=== PATIENT | female | born 1980 | race African-American/Black ===

== ENCOUNTER 2018-02-02 17:49 | Emergency (ER) | payer OTHER ==
[~2018-02-02] VITALS: Ht 154.9 cm; Wt 70.8 kg
[2018-02-02 18:04] VITALS: BP 102/68
[2018-02-02] MEDS ORDERED: Norco 5mg/325mg tab ORAL ONE (18:30)
--- NOTE | 2018-02-02 19:08 | Emergency Room Report ---
History of Present Illness General Chief Complaint: Toothache Source: Patient Present Illness HPI 38 YO Female presents to the ED c/o 06/05 in severity localized pain, tenderness , swelling, and erythema to one of the the right upper teeth associated with a broken tooth. x 2 days. pt. reports pain has begun to cause progressive HERNANDEZ on the right side. Patient states that her tooth has been broken for quite some time and she never had pain like this previously. Patient states that she was recommended to have root canal performed which she has not gotten around to. Patient denies fevers, chills Samy sore throat, neck pain, swollen tender lymph nodes. She denies recent dental procedures. Denies dizziness, changes in vision, nausea or vomiting. Allergies: Coded Allergies: No Known Allergies (Unverified , 02/02/18) Patient History Past Medical History: see triage record Past Surgical History: none Pertinent Family History: none Last Menstrual Period: Implant to left upper arm. Reviewed Nursing Documentation: PMH: Agreed; PSxH: Agreed Nursing Documentation-PMH Past Medical History: No Stated History Review of Systems All Other Systems: negative except mentioned in HPI Physical Exam Vital Signs Date Time Temp Pulse Resp B/P (MAP) Pulse Ox O2 Delivery O2 Flow Rate FiO2 02/02/18 18:04 98.3 73 17 102/68 97 Room Air 98.3 Sp02 EP Interpretation: reviewed, normal General Appearance: alert, GCS 15, non-toxic, moderate distress Head: normocephalic, atraumatic Eyes: bilateral eye normal inspection, bilateral eye PERRL ENT: hearing grossly normal, normal voice, uvula midline, moist mucus membranes , other - Premolar tooth no. 4 is brocken near the gum line with exposure of pulp, tenderness to percussion, no palpable fluctuance about the gums, no oral lesions. Neck: full range of motion Respiratory: lungs clear, normal breath sounds, speaking full sentences Cardiovascular #1: regular rate, rhythm Musculoskeletal: back normal, gait/station normal, normal range of motion, non- tender Neurologic: alert, oriented x3, responsive, motor strength/tone normal, sensory intact, normal gait, speech normal, grossly normal Psychiatric: judgement/insight normal Skin: normal color, no rash, warm/dry, well hydrated Lymphatic: no adenopathy Medical Decision Making PA Attestation Dr. Coyle is my supervising Physician whom patient management has been discussed with. Diagnostic Impression: Primary Impression: Pain, dental Additional Impression: Nontraumatic broken or cracked tooth ER Course 38 YO Female presents to the ED c/o 06/05 in severity localized pain, tenderness , swelling, and erythema to one of the the right upper teeth associated with a broken tooth. x 2 days. pt. reports pain has begun to cause progressive HERNANDEZ on the right side. Patient states that her tooth has been broken for quite some time and she never had pain like this previously. Patient states that she was recommended to have root canal performed which she has not gotten around to. Patient denies fevers, chills Samy sore throat, neck pain, swollen tender lymph nodes. She denies recent dental procedures. Denies dizziness, changes in vision, nausea or vomiting. Ddx considered but are not limited to cellulitis, dental abscess, orbital cellulitis, d/l tooth, dental pain. trigeminal neuralgia Vital signs: are WNL, pt. is afebrile H&PE are most consistent with nontraumatic broken tooth with pulpitis. ORDERS: none required at this time, the diagnosis is clinical ED INTERVENTIONS: None required at this time. DISCHARGE: At this time pt. is stable for d/c to home. Will provide printed patient care instructions, and any necessary prescriptions. Care plan and follow up instructions have been discussed with the patient prior to discharge. Last Vital Signs Date Time Temp Pulse Resp B/P (MAP) Pulse Ox O2 Delivery O2 Flow Rate FiO2 02/02/18 18:53 98.3 02/02/18 18:04 73 17 102/68 97 Room Air Disposition: HOME, SELF-CARE Condition: Stable Scripts Hydrocodone Bit/Acetaminophen 5-325* (NORCO 5-325*) 1 Each Tablet 1 TAB ORAL Q6H PRN for For Pain, #5 TAB 0 Refills Prov: Yenifer Dorsey 02/02/18 Amoxicillin* (AMOXIL*) 500 Mg Capsule 500 MG ORAL BID for 7 Days, #14 CAP Prov: Yenifer Dorsey 02/02/18 Benzocaine (ANESTHETIC ORAL GEL) 14 Gm Gel..gram. 14 GM MM QID, #14 GM Prov: Yenifer Dorsey 02/02/18 Ibuprofen* (MOTRIN*) 600 Mg Tablet 600 MG ORAL THREE TIMES A DAY, #20 TAB 0 Refills Prov: Yenifer Dorsey 02/02/18 Patient Instructions: Dental Pain Additional Instructions: Take medications as directed. Follow up with a Dentist in 3-5 days, even if your symptoms have resolved. * * --Please review list of Dental clinics, if you do not already have a Dentist Return sooner to ED if new symptoms occur, or current symptoms become worse. - Please note that this Emergency Department Report was dictated using [employer] admin technology software, occasionally this can lead to erroneous entry secondary to interpretation by the dictation equipment. Yenifer Dorsey Feb 02, 2018 19:08
[2018-02-02] MEDS ORDERED: NORCO 5-325 TA1 EACH ORAL (19:10)
[2018-02-02] MEDS ORDERED: AMOXICILLIN500 MG ORAL (19:10)
[2018-02-02] MEDS ORDERED: ANESTHETIC ORAL14 GM MM (19:10)
[2018-02-02] MEDS ORDERED: IBUPROFEN600 MG ORAL (19:10)
[2018-02-02] MEDS ORDERED: Lidocaine 2% Visc 15ml soln ORAL ONE (19:15)
[2018-02-02 19:22] VITALS: BP 102/68
== END 2018-02-02 19:25 | disposition home or self-care (01) ==
LOC: EMR 18:20
DX: K08.89 Other specified disorders of teeth and supporting structures (principal); K03.81 Cracked tooth
CPT/HCPCS: 99284

== ENCOUNTER 2018-05-03 14:51 | Emergency (ER) | payer OTHER ==
[~2018-05-03] VITALS: Ht 157.5 cm; Wt 68.0 kg
[~2018-05-03 14:51] MED LIST: AMOXICILLIN500 MG ORAL; ANESTHETIC ORAL14 GM MM; IBUPROFEN600 MG ORAL; NORCO 5-325 TA1 EACH ORAL
[2018-05-03 15:02] VITALS: BP 112/70
--- NOTE | 2018-05-03 15:14 | Emergency Room Report ---
History of Present Illness General Chief Complaint: Female Urogenital Problems Source: Patient Present Illness HPI 38-year-old female patient presents ER complaining of pelvic discomfort for the past 4 days. reports would like to be tested for STI. Reports symptoms began after having unprotected sex with single partner. Denies vaginal discharge or foul smelling odor. denies pelvic rash or lesions. denies frequency, urgency, dysuria, hematuria. Reports takes control medication. Reports does not know partners is experiencing symptoms. Denies fever, chest pain, shortness of breath, vomiting, back pain, diarrhea. Allergies: Coded Allergies: No Known Allergies (Unverified , 05/03/18) Patient History Past Medical History: see triage record Last Menstrual Period: six days ago Now: No Reviewed Nursing Documentation: PMH: Agreed; PSxH: Agreed Nursing Documentation-PMH Past Medical History: No History, Except For Review of Systems All Other Systems: negative except mentioned in HPI Physical Exam Vital Signs Date Time Temp Pulse Resp B/P (MAP) Pulse Ox O2 Delivery O2 Flow Rate FiO2 05/03/18 14:53 98.2 96 16 112/70 96 Room Air 98.2 Sp02 EP Interpretation: reviewed, normal General Appearance: well appearing, no apparent distress, alert, GCS 15, non- toxic Head: normocephalic, atraumatic Eyes: bilateral eye normal inspection, bilateral eye PERRL ENT: hearing grossly normal, normal pharynx, no angioedema, normal voice, uvula midline, moist mucus membranes Neck: full range of motion Respiratory: lungs clear, normal breath sounds, no rhonchi, no respiratory distress, no accessory muscle use, no wheezing, speaking full sentences Cardiovascular #1: regular rate, rhythm, no edema Gastrointestinal: non tender, soft, no mass, non-distended, no guarding, no rebound Genitourinary: no CVA tenderness Musculoskeletal: back normal, digits/nails normal, gait/station normal, normal range of motion, non-tender Neurologic: alert, oriented x3, responsive, motor strength/tone normal, sensory intact Psychiatric: mood/affect normal Skin: no rash Medical Decision Making PA Attestation Dr. Villar is my supervising Physician whom patient management has been discussed with. Diagnostic Impression: Primary Impression: Encounter for screening for infections with predominantly sexual mode of transmission ER Course Pt. presents to the ED c/o STI. Ddx considered but are not limited to gonorrhea, chalmydia, cystitis, pylonephritis. no abdominal tenderness to palpation, patient ambulatory, nontoxic appearing, low suspicion for ovarian torsion., does not require imaging at this time. Vital signs: are WNL, pt. is afebrile Ordered UA and abx. ER COURSE: UA results unremarkable, no signs of infection. urine negative. Results discussed with patient. Provided patient with Rocephin and Azithromycin in the ER. Informed patient medications will cover for gonorrhea and chlamydia, needs further follow-up evaluation and possible treatment of other sexual transmitted infections. Advised to use safe sex practices including but not limited to use of condoms. Avoid sexual activity for the next weeks. Instructed patient to follow up with STI clinic and/or PCP for STI evaluation and further treatment as necessary. Instructed patient to inform partners of needs for evaluation and treatment of possible infections. Take Tylenol for pain symptoms. DISCHARGE: Patient is resting comfortably, in no acute distress, nontoxic appearing, talking without difficulty. Patient to take medications as instructed Will provide with patient care instructions and any necessary prescriptions. Care plan and follow-up instructions provided. Patient instructed to follow-up with primary care provider in 3 - 5 days. Patient questions asked and answered. Patient reports understanding and agreement to treatment plan. ER precautions given. Patient instructed to return to ER immediately for any new or worsening of symptoms including but not limited to increasing SOB, persistent fever. - Please note that this Emergency Department Report was dictated using [employer] trader technology software, occasionally this can lead to erroneous entry secondary to interpretation by the dictation equipment. Labs Test 05/03/18 15:20 Urine Color Pale yellow Urine Appearance Clear Urine pH 7 (4.5-8.0) Urine Specific [place] 1.020 (1.005-1.035) Urine Protein Negative (NEGATIVE) Urine Glucose (UA) Negative (NEGATIVE) Urine Ketones Negative (NEGATIVE) Urine Blood 2+ (NEGATIVE) Urine Nitrite Negative (NEGATIVE) Urine Bilirubin Negative (NEGATIVE) Urine Urobilinogen Normal MG/DL (0.0-1.0) Urine Leukocyte Esterase 2+ (NEGATIVE) Urine RBC 5-10 /HPF (0 - 2) Urine WBC 2-4 /HPF (0 - 2) Urine Squamous Epithelial Cells Few /LPF (NONE/OCC) Urine Amorphous Sediment Few /LPF (NONE) Urine Bacteria Few /HPF (NONE) Urine HCG, Qualitative Negative (NEGATIVE) Last Vital Signs Date Time Temp Pulse Resp B/P (MAP) Pulse Ox O2 Delivery O2 Flow Rate FiO2 05/03/18 15:02 98.2 96 16 112/70 96 Room Air 98.2 Disposition: HOME, SELF-CARE Condition: Stable Referrals: [email or web address],REFERRING (PCP) Patient Instructions: Sexually Transmitted Disease, [id number] Additional Instructions: Followup with primary care provider and followup with STI clinic for further evaluation and treatment. Alert sexual partners for need for evaluation and treatment. Wear condoms during sex. Avoid sexual activity for 2 weeks. Drink plenty of fluids. Patient questions asked and answered. ER precautions given, patient instructed to return to ER immediately for any new or worsening of symptoms. Conor Armstrong May 03, 2018 15:14
[2018-05-03] MEDS ORDERED: Lidocaine 1% MPF 10mg/ml 5ml INJ ONE (15:15)
[2018-05-03] MEDS ORDERED: Azithromycin 250mg tab ORAL ONE (15:15)
[2018-05-03 15:44] LABS: APPEARANCE,URINE CLEAR; BILIRUBIN, URINE NEGATIVE (NEGATIVE); COLOR,URINE PALE YELLOW; GLUCOSE, URINE (UA) NEGATIVE (NEGATIVE); KETONES,URINE NEGATIVE (NEGATIVE); LEUKOCYTE ESTERASE ,URINE 2+ (NEGATIVE); NITRITE,URINE NEGATIVE (NEGATIVE); PH,URINE 7 (4.5-8.0); PROTEIN,URINE NEGATIVE (NEGATIVE); UROBILINOGEN,URINE NORMAL MG/DL (0.0-1.0)
[2018-05-03 16:18] VITALS: BP 112/70
== END 2018-05-03 16:18 | disposition home or self-care (01) ==
LOC: EMR 15:07
DX: Z11.3 Encounter for screening for infections with a predominantly sexual mode of transmission (principal); R10.2 Pelvic and perineal pain
CPT/HCPCS: 81003; 81025; 96372; 99283; J0696; Q0144

== ENCOUNTER 2019-02-05 19:12 | Emergency (ER) | payer OTHER ==
[~2019-02-05] VITALS: Ht 154.9 cm; Wt 72.6 kg
[2019-02-05 19:45] VITALS: BP 102/66
--- NOTE | 2019-02-05 20:21 | Emergency Room Report ---
History of Present Illness General Chief Complaint: Pain Present Illness HPI 39-year-old female with no significant past medical history here complaining of pain in right-sided space and she reports that she has an infected tooth pending follow-up with dentist. Patient is rating her pain 10 out of 10 with radiation to the left periorbital and left forehead denies pus drainage from her mouth. Denies tingling and numbness. Patient has been taking ibuprofen for pain. Denies sore throat, congestion, and all other URI symptoms. Denies chest pain, palpitation, shortness of breath, nausea vomiting. Patient reports that she cannot take Augmentin as it makes her dizzy. Allergies: Uncoded Allergies: BIRD (Allergy, Unknown, 02/05/19) CAT (Allergy, Unknown, 02/05/19) DOG (Allergy, Unknown, 02/05/19) Patient History Past Medical History: see triage record Past Surgical History: unable to obtain Last Menstrual Period: Jan 24 2019 Now: No Immunizations: UTD Reviewed Nursing Documentation: PMH: Agreed; PSxH: Agreed Review of Systems All Other Systems: negative except mentioned in HPI Physical Exam Vital Signs Date Time Temp Pulse Resp B/P (MAP) Pulse Ox O2 Delivery O2 Flow Rate FiO2 02/05/19 19:37 98.2 68 18 102/66 (78) 98 Room Air Sp02 EP Interpretation: reviewed, normal General Appearance: normal inspection, well appearing, no apparent distress, alert Head: normocephalic, atraumatic Eyes: bilateral eye normal inspection, bilateral eye PERRL ENT: normal pharynx, TMs + canals normal, uvula midline, other - swelling left maxilla, infx right lower molar Neck: normal inspection, full range of motion, supple Respiratory: normal inspection, chest non-tender, lungs clear, normal breath sounds Cardiovascular #1: normal inspection, regular rate, rhythm, no edema Gastrointestinal: normal inspection, soft Genitourinary: no CVA tenderness Musculoskeletal: normal inspection, back normal Neurologic: normal inspection, alert, oriented x3 Psychiatric: normal inspection, judgement/insight normal Skin: normal inspection, normal color, no rash Lymphatic: normal inspection, no adenopathy Medical Decision Making PA Attestation All my diagnosis and treatment plans were reviewed ad discussed with my supervising physician Dr. Coyle Diagnostic Impression: Primary Impression: Tooth infection ER Course 39-year-old female with no significant past medical history here complaining of pain in right-sided space and she reports that she has an infected tooth pending follow-up with dentist. Patient is rating her pain 10 out of 10 with radiation to the left periorbital and left forehead denies pus drainage from her mouth. Denies tingling and numbness. Patient has been taking ibuprofen for pain. Denies sore throat, congestion, and all other URI symptoms. Denies chest pain, palpitation, shortness of breath, nausea vomiting. Patient reports that she cannot take Augmentin as it makes her dizzy. Ddx considered but are not limited to: strep pharyngitis, URI, tonsilitis, peritonsillar absacess, influneza, tooth abscess, tooth infection, broken tooth Vital signs: are WNL, pt. is afebrile H&PE are most consistent with: Tooth infection ORDERS: Keflex, naproxen ED INTERVENTIONS: None required at this time. DISCHARGE: At this time pt. is stable for d/c to home. Will provide printed patient care instructions, and any necessary prescriptions. Care plan and follow up instructions have been discussed with the patient prior to discharge. Follow with your dentist take medication as directed Last Vital Signs Date Time Temp Pulse Resp B/P (MAP) Pulse Ox O2 Delivery O2 Flow Rate FiO2 02/05/19 19:37 98.2 68 18 102/66 (78) 98 Room Air Disposition: HOME, SELF-CARE Condition: Stable Scripts Cephalexin* (KEFLEX*) 500 Mg Capsule 500 MG ORAL EVERY 6 HOURS for 7 Days, #28 CAP Prov: Rodriguez Franks 02/05/19 Naproxen* (NAPROXEN*) 500 Mg Tablet 500 MG ORAL TWICE A DAY, #30 TAB Prov: Rodriguez Franks 02/05/19 Patient Instructions: Dental Abscess, [id number] Additional Instructions: See your dentist for follow-up avoid eating with the affected area Rodriguez Franks Feb 05, 2019 20:21
[2019-02-05] MEDS ORDERED: AUGMENTIN 875-1 EAC1 ORAL (20:22)
[2019-02-05] MEDS ORDERED: NAPROXEN500 M2 ORAL (20:22)
[2019-02-05 20:37] VITALS: BP 104/63
[2019-02-05] MEDS ORDERED: CEPHALEXIN500 MG ORAL (20:39)
== END 2019-02-05 20:37 | disposition home or self-care (01) ==
LOC: EMR 20:00
DX: K04.7 Periapical abscess without sinus (principal); Z91.048 Other nonmedicinal substance allergy status
CPT/HCPCS: 99282

== ENCOUNTER 2019-07-29 19:21 | Emergency (ER) | payer OTHER ==
[~2019-07-29] VITALS: Ht 154.9 cm; Wt 70.3 kg
[~2019-07-29 19:21] MED LIST changes: +AUGMENTIN 875-1 EAC1 ORAL; +CEPHALEXIN500 MG ORAL; +NAPROXEN500 M2 ORAL
[2019-07-29 19:45] VITALS: BP 107/73
--- NOTE | 2019-07-29 19:45 | NUR ---
ED Nurse Note: PT walked in to ED for C/O Letf lower ABD pain since 8am this morning. denies any N/V/D. pt is alert x4
--- NOTE | 2019-07-29 20:05 | NUR ---
ED Nurse Note: urine sample sent down to lab
--- NOTE | 2019-07-29 20:09 | Emergency Room Report ---
History of Present Illness General Chief Complaint: Abdominal Pain Source: Patient Present Illness HPI Disclaimer: Please note that this report is being documented using [employer] technology. This can lead to erroneous entry secondary to incorrect interpretation by the dictating instrument. HPI: 39-year-old female with history of ectopic presents for evaluation of pelvic pain. Symptoms began this morning when she awoke. She notes a cramping feeling in the right lower quadrant that is worse after she finishes urination. She denies any dysuria or hematuria. Denies flank pain, fever, chills. She was throwing up several days ago but attributed to a hangover. Just notes a soreness in the suprapubic and right lower quadrant region. She has a history of ectopic status post oophorectomy but cannot remember if it was on the right of the left. Her periods have been irregular lately. LMP was 20 July. Denies vaginal bleeding or vaginal discharge. PMH: Ectopic PSH: Oophorectomy Allergies: Denies Social Hx: Current smoker, occasional alcohol use Allergies: Uncoded Allergies: BIRD (Allergy, Unknown, 02/05/19) CAT (Allergy, Unknown, 02/05/19) DOG (Allergy, Unknown, 02/05/19) Patient History Last Menstrual Period: 07/16/19 Now: No : 8 Para: 5 Nursing Documentation-PMH Past Medical History: No Stated History Review of Systems All Other Systems: negative except mentioned in HPI Physical Exam Vital Signs Date Time Temp Pulse Resp B/P (MAP) Pulse Ox O2 Delivery O2 Flow Rate FiO2 07/29/19 19:37 98.4 76 17 107/73 (84) 98 Room Air 07/29/19 19:45 98 General: Awake and alert, no acute distress HEENT: NC/AT. EOMI. Resp: Normal work of breathing Abdomen: Obese, soft, nontender, nondistended. No rebound. No masses. Skin: Intact. No abrasions, laceration or rash over the exposed skin MSK: Normal tone and bulk. Moving all extremities. No obvious deformity. Neuro: Awake and alert. Mentating appropriately Medical Decision Making Diagnostic Impression: Primary Impression: Abdominal pain ER Course 39-year-old female with history of a toxic dependency presents for evaluation of abdominal pain. Patient is well-appearing with stable vital signs. Differential includes but is not limited to UTI, pyelonephritis, appendicitis, ovarian torsion, tubal , gastroenteritis, musculoskeletal strain. Given her retching from her hangover a few days ago it may be a musculoskeletal strain or urinary tract infection. There is no clinical evidence of pyelonephritis, appendicitis, torsion. Urinalysis shows a negative test. No evidence of acute urinary tract infection. She will be discharged to follow-up as an outpatient. We discussed reasons to return to the emergency department. She understands and agrees with the treatment plan. Last Vital Signs Date Time Temp Pulse Resp B/P (MAP) Pulse Ox O2 Delivery O2 Flow Rate FiO2 07/29/19 19:45 75 17 Room Air 98 07/29/19 19:45 98.4 107/73 98 Disposition: HOME, SELF-CARE Condition: Stable Ranulfo Puentes MD Jul 29, 2019 20:09
[2019-07-29 20:12] LABS: APPEARANCE,URINE SLIGHTLY CLOUDY; BILIRUBIN, URINE NEGATIVE (NEGATIVE); COLOR,URINE YELLOW; GLUCOSE, URINE (UA) NEGATIVE (NEGATIVE); KETONES,URINE 1+ (NEGATIVE); LEUKOCYTE ESTERASE ,URINE NEGATIVE (NEGATIVE); NITRITE,URINE NEGATIVE (NEGATIVE); PH,URINE 5 (4.5-8.0); PROTEIN,URINE 1+ (NEGATIVE); UROBILINOGEN,URINE 1 MG/DL (0.0-1.0)
[2019-07-29 20:30] VITALS: BP 112/70
--- NOTE | 2019-07-29 20:30 | NUR ---
ER DISCHARGE NOTE: Patient is cleared to be discharged per ERMD, pt is aox4, on room air, with stable vital signs. pt was given dc and prescription instructions, pt was able to verbalize understanding, pt id band removed without complications. pt is able to ambulate with steady gait. pt took all belongings.
== END 2019-07-29 20:30 | disposition home or self-care (01) ==
LOC: EMR 20:24
DX: R10.31 Right lower quadrant pain (principal); R10.2 Pelvic and perineal pain; F17.200 Nicotine dependence, unspecified, uncomplicated; Z90.721 Acquired absence of ovaries, unilateral
CPT/HCPCS: 81003; 81025; Z7502; 99283

== ENCOUNTER 2020-03-06 12:46 | Emergency (ER) | payer SELFPAY ==
[~2020-03-06] VITALS: Ht 154.9 cm; Wt 74.8 kg
[2020-03-06 12:53] VITALS: BP 105/66
--- NOTE | 2020-03-06 12:53 | NUR ---
ED Nurse Note: Patient walked in to ED c/o hearing loss to left ear x4 days. Per pt, she was swimming and water got into her ear, pt reports putting peroxide on her left ear. Denies pain. Pt AAOx4, verbally responsive. No SOB, on room air. ERMd at bedside.
[2020-03-06] MEDS ORDERED: OFLOXACIN5 ML OT (13:06)
[2020-03-06 13:10] VITALS: BP 105/66
--- NOTE | 2020-03-06 13:10 | NUR ---
ED Nurse Note: Pt cleared by ERMD for discharge. DC instructions/prescription was given and explained to pt and verbalized understanding of teachings. All medical deviecs such as ID band removed. Pt is AAO x4, ambulatory and left with all personal belongings.
--- NOTE | 2020-03-06 13:22 | Emergency Room Report ---
History of Present Illness General Chief Complaint: Earache Source: Patient Present Illness HPI Patient is a 40-year-old female presents after increased left-sided earache. She reports having onset of symptoms for the past 4 days after swimming. Had not been having any fever. Denies any Q-tip use. She states that she had diminished hearing into the left side. Denies any drainage from her ear. Had not been having any vomiting or diarrhea. Denies any other complaints. Allergies: Uncoded Allergies: BIRD (Allergy, Unknown, 02/05/19) CAT (Allergy, Unknown, 02/05/19) DOG (Allergy, Unknown, 02/05/19) COVID-19 Screening Contact w/high risk pt: No Experienced COVID-19 symptoms?: No COVID-19 Testing performed ACCOUNTING SUPPORT SPECIALIST: No Patient History Last Menstrual Period: 02/26/20 Now: No Reviewed Nursing Documentation: PMH: Agreed; PSxH: Agreed Nursing Documentation-PMH Past Medical History: No History, Except For Review of Systems All Other Systems: negative except mentioned in HPI Physical Exam Vital Signs Date Time Temp Pulse Resp B/P (MAP) Pulse Ox O2 Delivery O2 Flow Rate FiO2 03/06/20 12:50 98.4 79 17 105/66 (79) 98 Room Air Sp02 EP Interpretation: reviewed, normal General Appearance: normal inspection, well appearing, no apparent distress, alert, GCS 15 Head: atraumatic ENT: normal voice, other - Left ear canal swelling and discharge Neck: normal inspection, full range of motion, supple, no bony tend Respiratory: normal inspection, lungs clear, normal breath sounds, no respiratory distress, no retraction, no wheezing Cardiovascular #1: regular rate, rhythm, no edema Gastrointestinal: normal inspection, normal bowel sounds, non tender, soft, no guarding, no hernia Genitourinary: no CVA tenderness Musculoskeletal: normal inspection, back normal, normal range of motion Neurologic: alert, motor strength/tone normal, electrical checkout mechanic III-XII nml as tested, responsive, speech normal, normal inspection Psychiatric: normal inspection, judgement/insight normal, mood/affect normal Medical Decision Making Diagnostic Impression: Primary Impression: Otitis externa ER Course Patient presented for earache. Differential diagnosis include was not limited to otitis externa, otitis media, mastoiditis among others. Patient has a benign exam and does not appear to require any imaging or laboratory testing at this time. Patient appears to have evidence of external otitis. She was given prescription for ofloxacin otic. Patient was advised to follow-up with her primary care physician for recheck. She is to return if worse. This medical record is generated with [employer] knife operator software. There may be some knife operator discrepancies related to use of this software Last Vital Signs Date Time Temp Pulse Resp B/P (MAP) Pulse Ox O2 Delivery O2 Flow Rate FiO2 03/06/20 13:10 98.4 79 17 105/66 98 Room Air Status: improved Disposition: HOME, SELF-CARE Condition: Stable Scripts Ofloxacin (OFLOXACIN) 5 Ml Drops 10 DROP OT TWICE A DAY, #10 ML Prov: Dickson Pablo MD 03/06/20 Patient Instructions: Otitis Externa Additional Instructions: Follow up with your doctor for recheck in 1-2 days. Return if worse. Dickson Pablo MD Mar 06, 2020 13:21
== END 2020-03-06 13:30 | disposition home or self-care (01) ==
LOC: EMR 13:24
DX: H60.92 Unspecified otitis externa, left ear (principal); Z91.09 Other allergy status, other than to drugs and biological substances
CPT/HCPCS: 99282

== ENCOUNTER → 2020-04-05 | Emergency (ER) | payer MEDICAID ==
[~2020-04-05] VITALS: Ht 154.9 cm; Wt 72.6 kg
[~2020-04-05] MED LIST changes: +IBUPROFEN600 M1 ORAL; +OFLOXACIN5 ML OT
[2020-04-05 19:40] VITALS: BP 90/56
[2020-04-05 20:03] VITALS: BP 134/87
--- NOTE | 2020-04-05 21:04 | Emergency Room Report ---
History of Present Illness General Chief Complaint: Toothache Present Illness HPI 40 year old female presents with pain to the right upper tooth onset one week ago. She reports she had the tooth removed about a year ago but felt like there was still part of it left. She now believes that piece may be digging into her mouth. She has taken Tylenol and one [place] with mild relief. Pain rated 10/10. Denies fever or other symptoms. No recent trauma. She has not seen her dentist yet but is planning to tomorrow. Denies chance of . Allergies: Uncoded Allergies: BIRD (Allergy, Unknown, 02/05/19) CAT (Allergy, Unknown, 02/05/19) DOG (Allergy, Unknown, 02/05/19) COVID-19 Screening Contact w/high risk pt: No Experienced COVID-19 symptoms?: No COVID-19 Testing performed [employer]: No Patient History Past Medical History: see triage record Last Menstrual Period: 02/2020 Reviewed Nursing Documentation: PMH: Agreed; PSxH: Agreed Review of Systems All Other Systems: negative except mentioned in HPI Physical Exam Vital Signs Date Time Temp Pulse Resp B/P (MAP) Pulse Ox O2 Delivery O2 Flow Rate FiO2 04/05/20 19:13 71 16 90/56 (67) 97 Room Air 04/05/20 19:40 98.0 Sp02 EP Interpretation: reviewed, normal General Appearance: normal inspection, well appearing, no apparent distress, alert, GCS 15, non-toxic ENT: EOM grossly intact, normal pharynx, normal voice, TMs + canals normal, uvula midline, other - Mild skin irritation and tenderness around absent tooth # 1 but no evidence of dental abscess or obvious infection. No facial swelling or erythema. Neck: normal inspection, full range of motion, supple, thyroid normal, no meningismus, no bony tend Respiratory: chest non-tender, lungs clear, normal breath sounds, no respiratory distress Cardiovascular #1: normal peripheral pulses, regular rate, rhythm Musculoskeletal: normal inspection, normal range of motion, gait/station normal Neurologic: alert, motor strength/tone normal, heart coordinator III-XII nml as tested, oriented x3, sensory intact, speech normal Psychiatric: judgement/insight normal, mood/affect normal Skin: no rash, normal color, warm/dry Lymphatic: no adenopathy Medical Decision Making PA Attestation Dr. Rosenthal is my supervising physician whom patient management and care has been discussed with. Diagnostic Impression: Primary Impression: Toothache ER Course Pt. presents to the ED c/o toothache for one week. Ddx considered but are not limited to dental abscess, infection, gingivitis. Vital signs: are WNL, pt. is afebrile H&PE are most consistent with toothache, unspecified. ORDERS: none required at this time, the diagnosis is clinical ED INTERVENTIONS: None required at this time. DISCHARGE: At this time pt. is stable for d/c to home. Will provide printed patient care instructions, and prescriptions for Augmentin and Ibuprofen. Advised to follow up with dentist in 1-2 days. Care plan and follow up instructions have been discussed with the patient prior to discharge. Return precautions given. Last Vital Signs Date Time Temp Pulse Resp B/P (MAP) Pulse Ox O2 Delivery O2 Flow Rate FiO2 04/05/20 20:03 98.0 85 18 134/87 98 Room Air Disposition: HOME, SELF-CARE Condition: Stable Scripts Ibuprofen* (MOTRIN*) 600 Mg Tablet 600 MG ORAL Q6HR, #50 TAB Prov: Rosalina Lim N. P.Cj. 04/05/20 Amoxicillin/Potassium Clav 875-125* (AUGMENTIN 875-125 TABLET*) 1 Each Tablet 1 TAB ORAL TWICE A DAY for 10 Days, #20 TAB Prov: Rosalina Lim PKatiuska. 04/05/20 Referrals: NON PHYSICIAN (PCP) Patient Instructions: Dental Pain Additional Instructions: Take medications as directed. Follow up with a dentist in 1-2 days, even if your symptoms have resolved. * * --Please review list of primary care clinics, if you do not already have a primary care provider Return to the emergency department sooner if new symptoms occur, or current symptoms become worse. Rosalina Lim Apr 05, 2020 21:04
== END | disposition home or self-care (01) ==
LOC: EMR 19:54
DX: K08.89 Other specified disorders of teeth and supporting structures (principal); Z91.048 Other nonmedicinal substance allergy status
CPT/HCPCS: 99281